=== PATIENT | male | born 2000 | race Caucasian/White ===

== ENCOUNTER 2019-07-12 08:47 | Outpatient (CLI) | payer BC ==
--- NOTE | 2019-07-13 09:26 | NM ---
Nuclear medicine thyroid scan and uptake study: DATE: 07/13/2019 HISTORY: 19-year-old male with ICD-10: E05.90 thyrotoxicosis, unspecified without thyrotoxic crisis or storm. TECHNIQUE: 242 uCi of I-123 administered by mouth. 6 hour and 24-hour uptake studies performed. Scintigraphic images in 3 views. FINDINGS: Radiopharmaceutical uptake is homogeneous throughout the left and right lobes, with no hot nodules or cold nodules. Six-hour uptake: 33% (normal range 6-18%). 24-hour uptake: 31% (normal range 10-30%). IMPRESSION: Hyperthyroidism, evidence for at least mild Graves' disease.
== END 2019-07-12 08:48 | disposition home or self-care (01) ==
LOC: NM 08:47
PROVIDERS: ATTEND Internal Medicine Endocrinology, Diabetes & Metabolism
DX: E05.00 Thyrotoxicosis with diffuse goiter without thyrotoxic crisis or storm (principal); E03.9 Hypothyroidism, unspecified
CPT/HCPCS: 78014; A9516